=== PATIENT | male | born 1970 | race Two or more races ===

== ENCOUNTER 2021-09-29 23:57 | Emergency (ER) | payer BC, MEDICAID ==
[~2021-09-29] VITALS: Ht 165.1 cm; Wt 77.1 kg
--- NOTE | 2021-09-30 00:11 | NUR ---
BIBS C/O DIZZINESS X3 DAYS, WITH BLURRY VISION HX OF STROKE 05/2021. PT AWAKE A/OX3. TOLERATING R/A WELL WITH NO RESP DISTRESS OR SOB. SAFETY MEASURES IN PLACE. CONNECTED PT TO POX AND MONITOR.
--- NOTE | 2021-09-30 00:17 | NUR ---
BLAWINDER VALLEJO AT BEDSIDE FOR EKG
--- NOTE | 2021-09-30 00:23 | NUR ---
POC BS 147; DR. LAW SAGASTUME AWARE
--- NOTE | 2021-09-30 00:24 | NUR ---
ASSEMBLER CARDS AND ANNOUNCEMENTS AT PT'S BEDSIDE
[2021-09-30] MEDS ORDERED: MECLIZINE HCL 25 MG TABLET ONE (00:40)
--- NOTE | 2021-09-30 00:41 | NUR ---
PT TAKEN TO CT VIA [facility]
[2021-09-30 00:42] LABS: BASOPHILS % (AUTO) 0.4 % (0.0-2.0); EOSINOPHILS % (AUTO) 1.1 % (0.0-6.0); HEMATOCRIT 42 % (39-51); LYMPHOCYTES # (AUTO) 1.5 K/uL (0.8-4.8); LYMPHOCYTES % (AUTO) 24.8 % (20.0-44.0); MEAN CORPUSCULAR HGB CONC 33 g/dl (31.0-36.0); MEAN CORPUSCULAR VOLUME 94 fL (80-96); MONOCYTES # (AUTO) 0.6 K/uL (0.1-1.30); MONOCYTES % (AUTO) 9.5 % (2.0-12.0); NEUTROPHILS % (AUTO) 64.2 % (43.0-81.0); PLATELET COUNT (AUTO) 115 K/uL (150-450); RED BLOOD CELL COUNT(AUTO) 4.51 MIL/uL (4.5-6.0); WHITE BLOOD COUNT (AUTO) 6.3 K/uL (4.3-11.0)
[2021-09-30 00:51] LABS: CALCIUM, SERUM 8.6 mg/dL (8.5-10.1)
--- NOTE | 2021-09-30 00:55 | NUR ---
PT RETURNED TO ER BED [address]
[2021-09-30] MEDS ORDERED: MECLIZINE HCL 12.5 MG TABLET PO ONE (01:00)
[2021-09-30] MEDS ORDERED: MECL-159 PO (02:28)
--- NOTE | 2021-09-30 02:48 | NUR ---
Patient discharged to home in stable condition. Written and verbal after care instructions given. Patient verbalizes understanding of instruction.
[2021-09-30 02:50] VITALS: BP 139/88
== END 2021-09-30 02:51 | disposition home or self-care (01) ==
LOC: ER 09-30 00:25
DX: R42 Dizziness and giddiness (principal); I10 Essential (primary) hypertension; Z86.73 Personal history of transient ischemic attack (TIA), and cerebral infarction without residual deficits; Z60.2 Problems related to living alone
CPT/HCPCS: 99285; 70450; 71045; 93005; 85025; 80048; 36415; 84484; 82962; J8597

== ENCOUNTER 2022-03-13 00:08 | Emergency (ER) | payer MEDICAID ==
[~2022-03-13] VITALS: Ht 165.1 cm; Wt 77.1 kg
[~2022-03-13 00:08] MED LIST: MECL-159 PO
--- NOTE | 2022-03-13 00:46 | NUR ---
DR. ANSELMO FROST AT PT'S BEDSIDE FOR EVAL
--- NOTE | 2022-03-13 00:47 | NUR ---
URINE COLLECTED AND SENT TO LAB
--- NOTE | 2022-03-13 00:52 | NUR ---
ACCUCHECK BS 117
[2022-03-13] MEDS ORDERED: MECLIZINE HCL 12.5 MG TABLET ONE (00:59)
[2022-03-13] MEDS ORDERED: MECLIZINE HCL 12.5 MG TABLET PO ONE (01:00)
--- NOTE | 2022-03-13 01:14 | NUR ---
IV access established on Lt AC SL G#22. Intact, no sign of infiltration. Blood work collected and sent to lab.
--- NOTE | 2022-03-13 01:16 | NUR ---
Pt wheeled to CT scan by [email or web address]
[2022-03-13 01:31] LABS: BILIRUBIN,URINE NEGATIVE (NEGATIVE); COLOR,URINE YELLOW (YELLOW); LEUKOCYTE ESTERASE ,URINE NEGATIVE (NEGATIVE); NITRITE, URINE NEGATIVE (NEGATIVE); PROTEIN,URINE NEGATIVE (NEGATIVE); UGLUCOSE NEGATIVE (NEGATIVE); UROBILINOGEN,URINE 0.2 EU/dL (0.2)
[2022-03-13 01:35] LABS: BASOPHILS % (AUTO) 0.3 % (0.0-2.0); EOSINOPHILS % (AUTO) 1.3 % (0.0-6.0); HEMATOCRIT 42 % (39-51); LYMPHOCYTES % (AUTO) 29.6 % (20.0-44.0); MEAN CORPUSCULAR HGB CONC 34 g/dl (31.0-36.0); MEAN CORPUSCULAR VOLUME 92 fL (80-96); MONOCYTES # (AUTO) 0.5 K/uL (0.1-1.30); MONOCYTES % (AUTO) 7.2 % (2.0-12.0); NEUTROPHILS # (AUTO) 4.1 K/uL (1.8-8.9); NEUTROPHILS % (AUTO) 61.6 % (43.0-81.0); PLATELET COUNT (AUTO) 109 K/uL (150-450); RED BLOOD CELL COUNT(AUTO) 4.51 MIL/uL (4.5-6.0); WHITE BLOOD COUNT (AUTO) 6.6 K/uL (4.3-11.0)
[2022-03-13 01:41] LABS: CALCIUM, SERUM 8.8 mg/dL (8.5-10.1); CARBON DIOXIDE 33 mmol/L (21-32); CHLORIDE 102 mmol/L (98-107); GLUCOSE 131 mg/dL (74-106); POTASSIUM 3.8 mmol/L (3.5-5.1); SODIUM SERUM 141 mmol/L (136-145); UREA NITROGEN, BLOOD 11 mg/dL (7-18)
[2022-03-13 01:47] LABS: ALANINE AMINOTRANSFERASE 34 U/L (12-78); ALBUMIN 3.9 g/dL (3.4-5.0); ALKALINE PHOSPHATASE 119 U/L (46-116); ASPARTATE AMINOTRANSFERASE 20 U/L (15-37); BILIRUBIN,DIRECT 0.1 mg/dL (0.0-0.2); BILIRUBIN,TOTAL 0.5 mg/dL (0.2-1.0); TOTAL PROTEIN, SERUM 7.9 g/dL (6.4-8.2)
--- NOTE | 2022-03-13 04:25 | NUR ---
Patient discharged to home in stable condition. Written and verbal after care instructions given. Patient verbalizes understanding of instruction.IV removed. Catheter intact and site benign. Pressure and 4x4 applied to site. No bleeding noted. Pt ambulatory with a steady gait
--- NOTE | 2022-03-13 04:30 | NUR ---
Patient discharged to home in stable condition. Written and verbal after care instructions given. Patient verbalizes understanding of instruction. IV removed. Catheter intact and site benign. Pressure and 4x4 applied to site. No bleeding noted. Pt ambulatory with a steady gait
[2022-03-13 06:08] VITALS: BP 118/78
== END 2022-03-13 06:09 | disposition home or self-care (01) ==
LOC: ER 00:10
DX: R42 Dizziness and giddiness (principal); I10 Essential (primary) hypertension; Z86.73 Personal history of transient ischemic attack (TIA), and cerebral infarction without residual deficits; Z60.2 Problems related to living alone; Z79.899 Other long term (current) drug therapy
CPT/HCPCS: 99285; 70450; 71045; 93005; 85025; 80048; 80076; 81003; 36415; 84484 ×2; 85730; 82962; J8597

== ENCOUNTER 2022-06-19 22:45 | Emergency (ER) | payer MEDICAID ==
[~2022-06-19] VITALS: Ht 165.1 cm; Wt 77.1 kg
[2022-06-19 23:51] VITALS: BP 134/85
--- NOTE | 2022-06-20 00:50 | NUR ---
PATIENT LEFT WITHOUT BEING SEEN BY THE PHYSICIAN
== END 2022-06-20 00:51 | disposition left against medical advice (07) ==
LOC: ER 22:49
DX: I10 Essential (primary) hypertension (principal)